=== PATIENT | male | born 1985 | race Caucasian/White ===

== ENCOUNTER 2016-09-14 11:54 | Emergency (ER) | payer SELFPAY ==
[~2016-09-14] VITALS: Ht 177.8 cm; Wt 86.1 kg
[~2016-09-14 11:54] MED LIST: NORCO 5/3251 TABLET PO
[2016-09-14] MEDS ORDERED: FLEXERIL10 MG PO (13:03)
[2016-09-14] MEDS ORDERED: NAPROSYN500 MG PO (13:03)
[2016-09-14] MEDS ORDERED: PREDNISONE10 MG PO (13:03)
[2016-09-14 14:00] VITALS: BP 145/97
== END 2016-09-14 14:02 | disposition home or self-care (01) ==
LOC: EME 11:54 → EXP 11:54
DX: M54.42 Lumbago with sciatica, left side (principal); M62.830 Muscle spasm of back
CPT/HCPCS: 99281; 99284; J1885

== ENCOUNTER 2017-03-26 14:07 | Emergency (ER) | payer SELFPAY ==
[~2017-03-26] VITALS: Ht 180.3 cm; Wt 86.3 kg
[~2017-03-26 14:07] MED LIST changes: +FLEXERIL10 MG PO; +NAPROSYN500 MG PO; +PREDNISONE10 MG PO
[2017-03-26 15:10] LABS: HEMATOCRIT 45.6 % (38.0-50.0); MCH 30.2 PG (29.0-34.0); MCHC 34.9 G/DL (30.0-36.0); MCV 86.5 FL (86-99); RBC DIS.WIDTH-CV 12.5 % (11.8-14.6); RBC DIS.WIDTH-SD 39.9 % (39-53); RED BLOOD COUNT 5.27 M/uL (4.00-5.50); WHITE BLOOD COUNT 8.1 K/uL (4.1-10.2)
[2017-03-26 15:30] LABS: TROP-I INTERPRETATION NEGATIVE; TROPONIN-I < 0.01 ng/mL (0.0-0.30)
[2017-03-26 15:32] LABS: CHLORIDE 111 mEq/L (99-109); POTASSIUM 4.1 mEq/L (3.7-5.4); SODIUM 143 mEq/L (136-147)
[2017-03-26 15:34] LABS: GLUCOSE 83 mg/dL (70-99)
[2017-03-26 15:35] LABS: ANION GAP 9 MEQ/L (2-14)
[2017-03-26 15:37] LABS: GFR ESTIMATE (CALCULATED) > 59 mL/min/
[2017-03-26 15:38] LABS: UREA NITROGEN (BUN) 12 mg/dL (9-23)
[2017-03-26 16:21] LABS: MEAN PLAT.VOLUME 11.4 uM^3 (9.0-12.4); PLATELET CLUMPS PRESENT - PLATELET COUNT APPEARS ADQ.; PLATELET COUNT 183 K/uL (156-360)
[2017-03-26] MEDS ORDERED: AZITHROMYCIN250 MG PO (16:33)
[2017-03-26] MEDS ORDERED: PROAIR RESPICL90 MCG IH (16:33)
[2017-03-26] MEDS ORDERED: MEDROL DOSEPAK4 MG PO (16:33)
[2017-03-26 17:10] VITALS: BP 117/83
== END 2017-03-26 17:40 | disposition home or self-care (01) ==
LOC: EME 14:07
PROVIDERS: Physician Assistant Medical
DX: J20.9 Acute bronchitis, unspecified (principal)
CPT/HCPCS: 71020; 80048; 84484; 85027; 93005; 99281; 99284; G0480; J1885; J7030

== ENCOUNTER 2017-08-15 20:13 | Emergency (ER) | payer SELFPAY ==
[~2017-08-15] VITALS: Ht 180.3 cm; Wt 86.9 kg
[~2017-08-15 20:13] MED LIST changes: +AZITHROMYCIN250 MG PO; +MEDROL DOSEPAK4 MG PO; +PROAIR RESPICL90 MCG IH
[2017-08-15 20:48] LABS: HEMATOCRIT 44.9 % (38.0-50.0); HEMOGLOBIN 16.2 G/DL (12.5-16.6); MCH 31.4 PG (29.0-34.0); MCHC 36.1 G/DL (30.0-36.0); RBC DIS.WIDTH-CV 12.1 % (11.8-14.6); RBC DIS.WIDTH-SD 39.1 % (39-53); RED BLOOD COUNT 5.16 M/uL (4.00-5.50); WHITE BLOOD COUNT 8.3 K/uL (4.1-10.2)
[2017-08-15 21:02] LABS: CHLORIDE 109 mEq/L (99-109); POTASSIUM 3.9 mEq/L (3.7-5.4); SODIUM 138 mEq/L (136-147)
[2017-08-15 21:03] LABS: GLUCOSE 97 mg/dL (70-99)
[2017-08-15 21:07] LABS: CREATININE 0.8 mg/dL (0.6-1.3); GFR ESTIMATE (CALCULATED) > 59 mL/min/ (58.99-99999)
[2017-08-15 21:08] LABS: UREA NITROGEN (BUN) 11 mg/dL (9-23)
[2017-08-15 21:14] LABS: TROP-I INTERPRETATION NEGATIVE; TROPONIN-I < 0.01 ng/mL (0.0-0.30)
[2017-08-15 21:41] LABS: HEMATOLOGY COMMENT 1 SN; PLAT.SUFFICIENCY ADEQUATE; PLATELET COUNT 189 K/uL (156-360)
[2017-08-15 22:13] VITALS: BP 130/96
== END 2017-08-15 22:14 | disposition home or self-care (01) ==
LOC: EME 20:13 → RME 20:13
DX: R07.89 Other chest pain (principal); J11.1 Influenza due to unidentified influenza virus with other respiratory manifestations
CPT/HCPCS: 71046; 80048; 84484; 85027; 93005; 99281; 99283; J1885